=== PATIENT | female | born 1985 | race Caucasian/White ===

== ENCOUNTER 2019-08-09 10:18 | Inpatient (IN) | payer MEDICAID ==
[~2019-08-09] VITALS: Ht 160 cm; Wt 66.7 kg
[2019-08-09] MEDS ORDERED: SODIUM CHLORIDE 0.9% 1,000 ML IV ONE (10:35)
[2019-08-09] MEDS ORDERED: ONDANSETRON HCL 4MG/2ML INJ IV STA (10:35)
[2019-08-09] MEDS ORDERED: MORPHINE SULFATE 4 MG/ML CPJ (NOT FOR IM USE) IV ONE (11:15)
[2019-08-09 11:21] LABS: BASOPHILS % 0.3 % (0.0-2.0); MEAN CORPUSCULAR HEMOGLOBIN 28.5 pg (28.0-32.0); MEAN CORPUSCULAR VOLUME 85.4 fL (81.0-99.0); MEAN PLATELET VOLUME 7.8 fl (7.4-10.4); MONOCYTES % 4.7 % (2.0-8.0); PLATELET 304 x1000/uL (130-400); RED BLOOD CELL COUNT 4.56 mill/uL (4.2-5.4); RED CELL DISTRIBUTION WIDTH 13.2 % (11.6-14.6)
[2019-08-09 11:28] LABS: CHLORIDE 110 mEq/L (98-107)
[2019-08-09 11:35] LABS: HCG SCREEN NEGATIVE
[2019-08-09 11:36] LABS: INR 1.1; PROTHROMBIN TIME 11.4 sec (9.6-11.0)
[2019-08-09 12:42] LABS: CLARITY URINE CLOUDY (CLEAR); COLOR URINE YELLOW (YELLOW); KETONES URINE 3+ (NEGATIVE); LEUKOCYTE ESTERASE URINE 1+ (NEGATIVE); NITRITE URINE NEGATIVE (NEGATIVE); OCCULT BLOOD URINE 3+ (NEGATIVE); PH URINE 5.5 (4.5-8.0); PROTEIN URINE 2+ (NEGATIVE); SPECIFIC GRAVITY URINE 1.039 (1.005-1.030)
[2019-08-09] MEDS ORDERED: VISCOUS LIDOCAINE 2% 15 ML UDC PO STA (13:22)
[2019-08-09] MEDS ORDERED: MAGNESIUM/ALUMINUM HYDROXIDE/SIMETHICONE 30ML UDC PO STA (13:22)
[2019-08-09] MEDS ORDERED: DICYCLOMINE 10 MG/5 ML ORAL SYR PO STA (13:22)
[2019-08-09] MEDS ORDERED: LORAZEPAM 0.5MG TABLET PO PRN (17:15)
[2019-08-09] MEDS ORDERED: IPRATROPIUM/ALBUTEROL 0.5-3(2.5)MG/3ML NEB HHN PRN (17:15)
[2019-08-09] MEDS ORDERED: CLONIDINE 0.1MG TABLET PO PRN (17:15)
[2019-08-09] MEDS ORDERED: KETOROLAC 15MG/ML VIAL IV PRN (17:15)
[2019-08-09] MEDS ORDERED: DOCUSATE SODIUM 100MG CAPSULE PO PRN (17:15)
[2019-08-09] MEDS ORDERED: POTASSIUM CHLORIDE 20MEQ TABLET SR PO SCH (17:30)
[2019-08-09] MEDS: SODIUM CHLORIDE 0.9% 1,000 ML IV SCH (19:10)
[2019-08-09] MEDS: ONDANSETRON HCL 4MG/2ML INJ IV PRN (19:17)
[2019-08-09] MEDS: HYDROMORPHONE HCL/PF 2MG/ML CPJ IV PRN (19:31)
[2019-08-10] VITALS (7 sets, daily range): BP systolic 126–162; BP diastolic 66–77
[2019-08-10] MEDS: SUCRALFATE 1 G/10 ML UDC PO SCH ×3 (00:08→11:38)
[2019-08-10] MEDS: PANTOPRAZOLE SODIUM 40 MG/VIAL IV SCH ×2 (00:10→08:42)
[2019-08-10 00:12] LABS: TOTAL IRON BINDING CAPACITY 428 ug/dL (250-450)
[2019-08-10 00:27] LABS: FERRITIN 32 ng/mL (10-291)
[2019-08-10 00:38] LABS: HEPATITIS B SURFACE ANTIGEN NEGATIVE
[2019-08-10 01:08] LABS: HEPATITIS A AB IGM NEGATIVE (NEGATIVE)
[2019-08-10] MEDS: ONDANSETRON HCL 4MG/2ML INJ IV PRN ×2 (01:34→07:52)
[2019-08-10] MEDS: HYDROMORPHONE HCL/PF 2MG/ML CPJ IV PRN ×2 (01:35→08:43)
[2019-08-10] MEDS: HYDROCODONE/ACETAMINOPHEN 5/325MG TABLET PO PRN ×2 (04:14→21:55)
[2019-08-10] MEDS: SODIUM CHLORIDE 0.9% 1,000 ML IV SCH ×2 (04:14→20:34)
[2019-08-10 06:39] LABS: BASOPHILS % 0.3 % (0.0-2.0); HEMATOCRIT. 35.3 % (36.0-48.0); HEMOGLOBIN. 12.2 g/dL (12.0-16.0); LYMPHOCYTES % 13.5 % (20.0-50.0); MEAN CORPUSCULAR HEMOGLOBIN 29.5 pg (28.0-32.0); MEAN CORPUSCULAR VOLUME 85.4 fL (81.0-99.0); MEAN PLATELET VOLUME 7.7 fl (7.4-10.4); MONOCYTES % 6.4 % (2.0-8.0); NEUTROPHILS % 79.8 % (40.0-76.0); PLATELET 270 x1000/uL (130-400); RED BLOOD CELL COUNT 4.14 mill/uL (4.2-5.4); RED CELL DISTRIBUTION WIDTH 13.3 % (11.6-14.6)
[2019-08-10 07:11] LABS: CHLORIDE 111 mEq/L (98-107)
[2019-08-10 07:33] LABS: *AMPHETAMINES SCREEN URINE NEGATIVE (NEGATIVE)
[2019-08-10 07:34] LABS: *BARBITURATES SCREEN URINE NEGATIVE (NEGATIVE); *BENZODIAZEPINES SCREEN URINE NEGATIVE (NEGATIVE); METHADONE URINE SCREEN NEGATIVE (NEGATIVE); PHENCYCLIDINE URINE SCREEN NEGATIVE (NEGATIVE)
[2019-08-10 07:48] LABS: *COCAINE SCREEN URINE NEGATIVE (NEGATIVE)
[2019-08-10] MEDS: ACETAMINOPHEN 325MG TABLET PO PRN ×2 (07:53→09:27)
[2019-08-10 08:53] LABS: OPIATES URINE SCREEN PRESUMTIVE POSITIVE (NEGATIVE)
[2019-08-10 08:54] LABS: CANNABINOID URINE SCREEN PRESUMTIVE POSITIVE (NEGATIVE)
[2019-08-10] MEDS ORDERED: METOCLOPRAMIDE HCL 10MG/2ML VIAL IV PRN (12:15)
[2019-08-10] MEDS ORDERED: HYDROMORPHONE HCL/PF 2MG/ML CPJ IV PRN (12:45)
[2019-08-10] MEDS ORDERED: ONDANSETRON HCL 4MG/2ML INJ IV PRN (16:15)
[2019-08-10] MEDS ORDERED: ONDANSETRON INJ 8 MG in DEXTROSE 5% WATER 50 ML IV PRN (16:45)
[2019-08-10] MEDS ORDERED: LEVOFLOXACIN 500MG PREMIX 100 ML IV SCH (18:00)
[2019-08-10] MEDS: ALPRAZOLAM 0.25 MG TABLET PO SCH ×2 (18:04→18:05)
[2019-08-10] MEDS: LORAZEPAM 2MG/ML CPJ IV PRN ×2 (18:29→19:03)
[2019-08-10] MEDS: ONDANSETRON INJ 8 MG in DEXTROSE 5% WATER 50 ML IV SCH ×3 (18:29→21:16)
[2019-08-11] VITALS: BP 160/87
[2019-08-11] MEDS: ONDANSETRON INJ 8 MG in DEXTROSE 5% WATER 50 ML IV SCH (01:54)
[2019-08-11] MEDS: HYDROCODONE/ACETAMINOPHEN 5/325MG TABLET PO PRN (02:44)
[2019-08-11 04:00] VITALS: BP 132/73
[2019-08-11] MEDS: ALPRAZOLAM 0.25 MG TABLET PO SCH ×2 (05:24→13:36)
[2019-08-11 08:00] VITALS: BP 118/64
[2019-08-11] MEDS: PANTOPRAZOLE SODIUM 40 MG/VIAL IV SCH (08:11)
[2019-08-11] MEDS: LORAZEPAM 2MG/ML CPJ IV PRN ×3 (09:01→23:57)
[2019-08-11] MEDS: SODIUM CHLORIDE 0.9% 1,000 ML IV SCH ×3 (11:08→23:57)
[2019-08-11] MEDS: LEVOFLOXACIN 250MG PREMIX 50 ML IV SCH (11:09)
[2019-08-11 12:00] VITALS: BP 118/64
[2019-08-11] MEDS ORDERED: POTASSIUM CHLORIDE 20MEQ TABLET SR PO NR (13:30)
[2019-08-11 16:00] VITALS: BP 125/67
[2019-08-11 20:00] VITALS: BP 137/78
[2019-08-12] VITALS: BP 103/57
[2019-08-12 04:00] VITALS: BP 126/76
[2019-08-12 07:26] LABS: BASOPHILS % 0.6 % (0.0-2.0); EOSINOPHILS % 0.1 % (0.0-5.0); HEMATOCRIT. 38.4 % (36.0-48.0); HEMOGLOBIN. 12.9 g/dL (12.0-16.0); LYMPHOCYTES % 40.3 % (20.0-50.0); MEAN CORPUSCULAR HEMOGLOBIN 28.1 pg (28.0-32.0); MEAN CORPUSCULAR VOLUME 83.9 fL (81.0-99.0); MEAN PLATELET VOLUME 7.7 fl (7.4-10.4); MONOCYTES % 6.9 % (2.0-8.0); NEUTROPHILS % 52.1 % (40.0-76.0); PLATELET 288 x1000/uL (130-400); RED BLOOD CELL COUNT 4.57 mill/uL (4.2-5.4); RED CELL DISTRIBUTION WIDTH 13.2 % (11.6-14.6)
[2019-08-12 07:29] LABS: CHLORIDE 106 mEq/L (98-107)
[2019-08-12 08:00] VITALS: BP 151/76
[2019-08-12] MEDS: PANTOPRAZOLE SODIUM 40 MG/VIAL IV SCH (09:27)
[2019-08-12] MEDS: SODIUM CHLORIDE 0.9% 1,000 ML IV SCH ×2 (09:27→15:52)
[2019-08-12] MEDS ORDERED: POTASSIUM CHLORIDE INJ 40 MEQ in DEXT 5% WATER 250 ML IV ONE (09:30)
[2019-08-12] MEDS: LEVOFLOXACIN 250MG PREMIX 50 ML IV SCH (10:12)
[2019-08-12 12:00] VITALS: BP 124/79
[2019-08-12] MEDS: ACETAMINOPHEN 325MG TABLET PO PRN ×2 (12:20→20:44)
[2019-08-12] MEDS: HYDROCODONE/ACETAMINOPHEN 5/325MG TABLET PO PRN ×2 (13:33→20:45)
[2019-08-12 16:00] VITALS: BP 117/71
[2019-08-12 20:00] VITALS: BP 136/68
[2019-08-12] MEDS ORDERED: ACETAMINOPHEN 650MG SUPP PR PRN (21:45)
[2019-08-13] VITALS: BP 115/62
[2019-08-13 04:00] VITALS: BP 120/58
[2019-08-13] MEDS: SODIUM CHLORIDE 0.9% 1,000 ML IV SCH ×3 (05:18→22:00)
[2019-08-13] MEDS: LORAZEPAM 2MG/ML CPJ IV PRN (05:32)
[2019-08-13 08:00] VITALS: BP 104/60
[2019-08-13] MEDS: PANTOPRAZOLE SODIUM 40 MG/VIAL IV SCH (08:34)
[2019-08-13] MEDS: LEVOFLOXACIN 250MG PREMIX 50 ML IV SCH (11:08)
[2019-08-13 12:00] VITALS: BP 104/61
[2019-08-13 13:34] LABS: BASOPHILS % 0.7 % (0.0-2.0); EOSINOPHILS % 0.2 % (0.0-5.0); HEMATOCRIT. 38.7 % (36.0-48.0); HEMOGLOBIN. 13.1 g/dL (12.0-16.0); LYMPHOCYTES % 37.2 % (20.0-50.0); MEAN CORPUSCULAR HEMOGLOBIN 28.3 pg (28.0-32.0); MEAN CORPUSCULAR VOLUME 83.4 fL (81.0-99.0); MEAN PLATELET VOLUME 7.5 fl (7.4-10.4); MONOCYTES % 6.6 % (2.0-8.0); NEUTROPHILS % 55.3 % (40.0-76.0); PLATELET 304 x1000/uL (130-400); RED BLOOD CELL COUNT 4.64 mill/uL (4.2-5.4); RED CELL DISTRIBUTION WIDTH 12.7 % (11.6-14.6)
[2019-08-13 13:47] LABS: CHLORIDE 106 mEq/L (98-107)
[2019-08-13] MEDS ORDERED: MIDAZOLAM HCL 2 MG/2 ML VIAL IV PRN (14:35)
[2019-08-13] MEDS ORDERED: FENTANYL CITRATE/PF 50MCG/ML 2ML VIAL IV PRN (14:37)
[2019-08-13] MEDS ORDERED: FENTANYL CITRATE/PF 50MCG/ML 2ML VIAL ONE (14:37)
[2019-08-13] MEDS ORDERED: MIDAZOLAM HCL 5 MG/5 ML VIAL ONE (14:37)
[2019-08-13] MEDS ORDERED: DIAZEPAM 5 MG/ML 2ML CPJ IV PRN (14:44)
[2019-08-13] MEDS ORDERED: DIAZEPAM 5 MG/ML 2ML CPJ ONE (14:47)
[2019-08-13 16:05] VITALS: BP 118/72
[2019-08-13] MEDS: SUCRALFATE 1 G/10 ML UDC PO SCH ×2 (17:50→21:07)
[2019-08-13] MEDS: METOCLOPRAMIDE HCL 10MG/2ML VIAL IV SCH ×2 (17:51→21:07)
[2019-08-13 20:00] VITALS: BP 125/75
[2019-08-14] VITALS (7 sets, daily range): BP systolic 117–128; BP diastolic 70–80
[2019-08-14] MEDS: METOCLOPRAMIDE HCL 10MG/2ML VIAL IV SCH ×3 (06:36→16:25)
[2019-08-14] MEDS: SUCRALFATE 1 G/10 ML UDC PO SCH ×3 (06:36→16:25)
[2019-08-14] MEDS: PANTOPRAZOLE SODIUM 40 MG/VIAL IV SCH (07:52)
[2019-08-14] MEDS: SODIUM CHLORIDE 0.9% 1,000 ML IV SCH (07:52)
[2019-08-14] MEDS: LEVOFLOXACIN 250MG PREMIX 50 ML IV SCH (11:57)
[2019-08-14] MEDS ORDERED: SUCR1ORA15 PO (13:15)
[2019-08-14] MEDS ORDERED: ONDA4TAB11 PO (13:15)
[2019-08-14] MEDS ORDERED: PANT40TA4 MT (13:15)
[2019-08-14] MEDS ORDERED: METO-293 PO (13:15)
[2019-08-14] MEDS ORDERED: HYDR-3281 MT (13:15)
[2019-08-14] MEDS ORDERED: ATOR20TA65 MT (13:15)
[2019-08-14] MEDS ORDERED: HYDR-4001 MT (14:37)
== END 2019-08-14 20:43 | disposition home or self-care (01) | DRG 242 ==
LOC: ER 10:18 → MICUSO 11:16 → EDBEDREQSVC 21:35 → EDBEDREQTM 21:35 → 5WST 23:01
PROVIDERS: ADMIT Internal Medicine; ATTEND Internal Medicine
PROC: 0DB68ZX Excision of Stomach, Via Natural or Artificial Opening Endoscopic, Diagnostic (ICD-10-PCS; principal; 2019-08-13)
DX: K22.11 Ulcer of esophagus with bleeding (principal); K29.71 Gastritis, unspecified, with bleeding; D72.810 Lymphocytopenia; F41.9 Anxiety disorder, unspecified; E78.1 Pure hyperglyceridemia; E87.6 Hypokalemia; F12.90 Cannabis use, unspecified, uncomplicated; E78.5 Hyperlipidemia, unspecified; N39.0 Urinary tract infection, site not specified; R31.29 Other microscopic hematuria; K76.9 Liver disease, unspecified; K21.0 Gastro-esophageal reflux disease with esophagitis; R80.9 Proteinuria, unspecified; I45.81 Long QT syndrome; Z87.19 Personal history of other diseases of the digestive system; R65.10 Systemic inflammatory response syndrome (SIRS) of non-infectious origin without acute organ dysfunction
CPT/HCPCS: 36415; 71045; 76700; 80048; 80053; 80061; 80305; 81003; 82728; 83036; 83540; 83550; 83605; 83735; 84132; 84145; 84484; 84703; 85025; 86705; 86709; 86803; 87340; 88305; 88312; 88313; 93005; 99285; C9113; J1170; J1956; J2060; J2250; J2270; J2405; J2765; J3010; J3480; J7030; J7060

== ENCOUNTER 2019-08-21 13:07 | Inpatient (IN) | payer MEDICAID ==
[~2019-08-21] VITALS: Ht 160 cm; Wt 64.9 kg
[~2019-08-21 13:07] MED LIST: ATOR20TA65 MT; HYDR-4001 MT; METO-293 PO; ONDA4TAB11 PO; PANT40TA4 MT; SUCR1ORA15 PO
[2019-08-21] MEDS ORDERED: ONDANSETRON HCL 4MG/2ML INJ IV STA ×2 (14:35→17:41)
[2019-08-21] MEDS ORDERED: MAGNESIUM/ALUMINUM HYDROXIDE/SIMETHICONE 30ML UDC PO STA (14:35)
[2019-08-21] MEDS ORDERED: DICYCLOMINE 10 MG/5 ML ORAL SYR PO STA (14:35)
[2019-08-21] MEDS ORDERED: VISCOUS LIDOCAINE 2% 15 ML UDC PO STA (14:35)
[2019-08-21] MEDS ORDERED: SODIUM CHLORIDE 0.9% 1,000 ML IV ONE (14:35)
[2019-08-21 15:21] LABS: BASOPHILS % 0.9 % (0.0-2.0); EOSINOPHILS % 0.1 % (0.0-5.0); HEMATOCRIT. 41.3 % (36.0-48.0); HEMOGLOBIN. 13.8 g/dL (12.0-16.0); MEAN CORPUSCULAR HEMOGLOBIN 28.1 pg (28.0-32.0); MEAN CORPUSCULAR VOLUME 84.4 fL (81.0-99.0); MEAN PLATELET VOLUME 7.7 fl (7.4-10.4); MONOCYTES % 6.9 % (2.0-8.0); NEUTROPHILS % 63.1 % (40.0-76.0); PLATELET 317 x1000/uL (130-400); RED BLOOD CELL COUNT 4.89 mill/uL (4.2-5.4); RED CELL DISTRIBUTION WIDTH 13.4 % (11.6-14.6)
[2019-08-21 15:24] LABS: CHLORIDE 104 mEq/L (98-107)
[2019-08-21] MEDS ORDERED: POTASSIUM CHLORIDE 20MEQ TABLET SR PO ONE (16:15)
[2019-08-21 16:39] LABS: CLARITY URINE CLOUDY (CLEAR); COLOR URINE DARK YELLOW (YELLOW); KETONES URINE 4+ (NEGATIVE); LEUKOCYTE ESTERASE URINE 1+ (NEGATIVE); NITRITE URINE NEGATIVE (NEGATIVE); OCCULT BLOOD URINE 1+ (NEGATIVE); PH URINE 5.5 (4.5-8.0); PROTEIN URINE TRACE (NEGATIVE); SPECIFIC GRAVITY URINE 1.027 (1.005-1.030)
[2019-08-21] MEDS ORDERED: MORPHINE SULFATE 4 MG/ML CPJ (NOT FOR IM USE) IV STA (17:41)
[2019-08-21] MEDS ORDERED: CEFTRIAXONE 1 G PREMIX 50 ML IV ONE (20:30)
[2019-08-22 00:05] VITALS: BP 111/78
[2019-08-22] MEDS ORDERED: ONDANSETRON HCL 4MG/2ML INJ IV PRN (00:15)
[2019-08-22] MEDS ORDERED: IPRATROPIUM/ALBUTEROL 0.5-3(2.5)MG/3ML NEB NEB PRN (00:15)
[2019-08-22] MEDS ORDERED: CLONIDINE 0.1MG TABLET PO PRN (00:15)
[2019-08-22] MEDS: SODIUM CHLORIDE 0.9% 1,000 ML IV SCH ×2 (01:26→13:22)
[2019-08-22] MEDS: ACETAMINOPHEN 325MG TABLET PO PRN (01:41)
[2019-08-22 04:00] VITALS: BP 107/59
[2019-08-22 07:07] LABS: CHLORIDE 109 mEq/L (98-107)
[2019-08-22 07:16] LABS: ETHANOL BLOOD < 10 mg/dL
[2019-08-22 07:20] LABS: CREATINE KINASE 57 IU/L (26-192)
[2019-08-22 07:23] LABS: CREATINE KINASE MB FRACTION < 1.0 ng/mL (0.5-3.6)
[2019-08-22 08:00] VITALS: BP 108/42
[2019-08-22] MEDS: HYDROCODONE/ACETAMINOPHEN 5/325MG TABLET PO PRN (09:35)
[2019-08-22 09:39] LABS: *AMPHETAMINES SCREEN URINE NEGATIVE (NEGATIVE); *BARBITURATES SCREEN URINE NEGATIVE (NEGATIVE)
[2019-08-22 09:40] LABS: *BENZODIAZEPINES SCREEN URINE NEGATIVE (NEGATIVE); *COCAINE SCREEN URINE NEGATIVE (NEGATIVE); METHADONE URINE SCREEN NEGATIVE (NEGATIVE); PHENCYCLIDINE URINE SCREEN NEGATIVE (NEGATIVE)
[2019-08-22 10:22] LABS: OPIATES URINE SCREEN PRESUMTIVE POSITIVE (NEGATIVE)
[2019-08-22 10:23] LABS: CANNABINOID URINE SCREEN PRESUMTIVE POSITIVE (NEGATIVE)
[2019-08-22 12:00] VITALS: BP 96/55
[2019-08-22] MEDS: BISACODYL 5MG TABLET PO SCH (13:22)
[2019-08-22 16:00] VITALS: BP 105/65
[2019-08-22 17:18] LABS: CREATINE KINASE 111 IU/L (26-192)
[2019-08-22 17:19] LABS: CREATINE KINASE MB FRACTION < 1.0 ng/mL (0.5-3.6)
[2019-08-22] MEDS: SUCRALFATE 1 G/10 ML UDC PO SCH ×2 (17:35→20:32)
[2019-08-22] MEDS: PANTOPRAZOLE SODIUM 40 MG/VIAL IV SCH (17:36)
[2019-08-22] MEDS: METOCLOPRAMIDE HCL 10MG/2ML VIAL IV SCH (17:36)
[2019-08-22 20:00] VITALS: BP 100/59
[2019-08-22] MEDS ORDERED: CEFTRIAXONE 1 G PREMIX 50 ML IV SCH ×2 (21:00)
[2019-08-23] VITALS: BP 117/55
[2019-08-23] MEDS: METOCLOPRAMIDE HCL 10MG/2ML VIAL IV SCH ×3 (00:10→12:34)
[2019-08-23] MEDS: SODIUM CHLORIDE 0.9% 1,000 ML IV SCH ×2 (01:33→13:42)
[2019-08-23 04:00] VITALS: BP 107/53
[2019-08-23 07:21] LABS: BASOPHILS % 0.7 % (0.0-2.0); EOSINOPHILS % 0.7 % (0.0-5.0); HEMATOCRIT. 36.5 % (36.0-48.0); HEMOGLOBIN. 12.2 g/dL (12.0-16.0); LYMPHOCYTES % 46.3 % (20.0-50.0); MEAN CORPUSCULAR HEMOGLOBIN 28.2 pg (28.0-32.0); MEAN CORPUSCULAR VOLUME 84.2 fL (81.0-99.0); MONOCYTES % 7.5 % (2.0-8.0); NEUTROPHILS % 44.8 % (40.0-76.0); PLATELET 255 x1000/uL (130-400); RED BLOOD CELL COUNT 4.34 mill/uL (4.2-5.4); RED CELL DISTRIBUTION WIDTH 13.3 % (11.6-14.6)
[2019-08-23] MEDS: SUCRALFATE 1 G/10 ML UDC PO SCH ×2 (07:22→12:34)
[2019-08-23 08:00] VITALS: BP 110/66
[2019-08-23] MEDS: PANTOPRAZOLE SODIUM 40 MG/VIAL IV SCH (09:19)
[2019-08-23] MEDS: BISACODYL 5MG TABLET PO SCH (09:19)
[2019-08-23] MEDS: ACETAMINOPHEN 325MG TABLET PO PRN (09:26)
[2019-08-23 12:00] VITALS: BP 104/50
[2019-08-23] MEDS: HYDROCODONE/ACETAMINOPHEN 5/325MG TABLET PO PRN (13:41)
[2019-08-23] MEDS ORDERED: METO-293 PO (14:10)
[2019-08-23 15:36] VITALS: BP 104/50
[2019-08-23 16:00] VITALS: BP 110/60
== END 2019-08-23 16:16 | disposition home or self-care (01) | DRG 812 ==
LOC: ER 13:17 → EDBEDREQTM 20:32 → EDBEDREQ 20:32 → ENRESERV 23:00 → 6EST 08-22 00:05
PROVIDERS: ADMIT Internal Medicine; ATTEND Emergency Medicine
DX: T40.7X1A Poisoning by cannabis (derivatives), accidental (unintentional), initial encounter (principal); N39.0 Urinary tract infection, site not specified; K52.9 Noninfective gastroenteritis and colitis, unspecified; E87.6 Hypokalemia; R11.15 Cyclical vomiting syndrome unrelated to migraine; K59.00 Constipation, unspecified; F12.90 Cannabis use, unspecified, uncomplicated; R74.8 Abnormal levels of other serum enzymes; K76.0 Fatty (change of) liver, not elsewhere classified; Z87.19 Personal history of other diseases of the digestive system
CPT/HCPCS: 36415; 74176; 80048; 80053; 80061; 80305; 80320; 81003; 82550; 82553; 83735; 84443; 84484; 85025; 96374; 99285; C9113; J0696; J2270; J2405; J2765; J7030; G0480

== ENCOUNTER 2021-03-26 11:04 | Emergency (ER) | payer MEDICAID ==
[~2021-03-26] VITALS: Ht 160 cm; Wt 64.0 kg
[~2021-03-26 11:04] MED LIST changes: -PANT40TA4 MT; +PANT40TA51 MT
[2021-03-26] MEDS ORDERED: PANTOPRAZOLE SODIUM 40 MG/VIAL IV STA (11:22)
[2021-03-26] MEDS ORDERED: METOCLOPRAMIDE HCL 10MG/2ML VIAL IV STA (11:25)
[2021-03-26] MEDS ORDERED: MAGNESIUM/ALUMINUM HYDROXIDE/SIMETHICONE 30ML UDC PO STA (11:31)
[2021-03-26 12:24] LABS: BASOPHILS % 0.3 % (0.0-2.0); HEMATOCRIT. 40.9 % (36.0-48.0); HEMOGLOBIN. 13.5 g/dL (12.0-16.0); LYMPHOCYTES % 12.5 % (20.0-50.0); MEAN CORPUSCULAR HEMOGLOBIN 27.9 pg (28.0-32.0); MEAN CORPUSCULAR VOLUME 84.1 fL (81.0-99.0); MEAN PLATELET VOLUME 7.9 fl (7.4-10.4); MONOCYTES % 3.3 % (2.0-8.0); NEUTROPHILS % 83.9 % (40.0-76.0); PLATELET 324 x1000/uL (130-400); RED BLOOD CELL COUNT 4.86 mill/uL (4.2-5.4); RED CELL DISTRIBUTION WIDTH 12.7 % (11.6-14.6)
[2021-03-26 12:29] LABS: CHLORIDE 109 mEq/L (98-107)
[2021-03-26 12:33] LABS: ETHANOL BLOOD < 10 mg/dL
[2021-03-26 12:38] LABS: *AMPHETAMINES SCREEN URINE NEGATIVE (NEGATIVE); *BARBITURATES SCREEN URINE NEGATIVE (NEGATIVE)
[2021-03-26 12:39] LABS: *BENZODIAZEPINES SCREEN URINE NEGATIVE (NEGATIVE); *COCAINE SCREEN URINE NEGATIVE (NEGATIVE); METHADONE URINE SCREEN NEGATIVE (NEGATIVE); OPIATES URINE SCREEN NEGATIVE (NEGATIVE); PHENCYCLIDINE URINE SCREEN NEGATIVE (NEGATIVE)
[2021-03-26 12:42] LABS: HCG SCREEN NEGATIVE
[2021-03-26 12:43] LABS: CANNABINOID URINE SCREEN PRESUMTIVE POSITIVE (NEGATIVE)
[2021-03-26] MEDS ORDERED: MORPHINE SULFATE 4 MG/ML CPJ (NOT FOR IM USE) IV ONE (12:45)
[2021-03-26] MEDS ORDERED: SODIUM CHLORIDE 0.9% 1,000 ML IV ONE (13:00)
[2021-03-26] MEDS ORDERED: HALOPERIDOL LACTATE 5MG/ML VIAL IM ONE (13:45)
[2021-03-26] MEDS ORDERED: DIPHENHYDRAMINE 50MG/ML VIAL IV ONE (13:45)
[2021-03-26 15:30] VITALS: BP 127/67
[2021-03-26 15:56] LABS: CLARITY URINE CLEAR (CLEAR); COLOR URINE YELLOW (YELLOW); KETONES URINE 2+ (NEGATIVE); LEUKOCYTE ESTERASE URINE 1+ (NEGATIVE); NITRITE URINE NEGATIVE (NEGATIVE); OCCULT BLOOD URINE 3+ (NEGATIVE); PH URINE 8.5 (4.5-8.0); PROTEIN URINE TRACE (NEGATIVE); SPECIFIC GRAVITY URINE 1.019 (1.005-1.030); UROBILINOGEN URINE 0.2 E.U./dL (0.2-1.0)
== END 2021-03-26 18:23 | disposition home or self-care (01) ==
LOC: ER 11:04 → CANBEDREQ 19:07
DX: F12.188 Cannabis abuse with other cannabis-induced disorder (principal); K76.9 Liver disease, unspecified; Z20.822 Contact with and (suspected) exposure to COVID-19
CPT/HCPCS: 36415; 71045; 74176; 80053; 80305; 80320; 81003; 83605; 83690; 83880; 84484; 84703; 85025; 85610; 86850; 86900; 86901; 87426; 96361; 96372; 96374; 96375; 99285; C9113; J1200; J1630; J2270; J2765; J7030; Z7610; G0480

== ENCOUNTER 2021-07-28 20:11 | Emergency (ER) | payer MEDICAID ==
[~2021-07-28] VITALS: Ht 160 cm; Wt 61.3 kg
[~2021-07-28 20:11] MED LIST changes: -HYDR-4001 MT; -METO-293 PO
[2021-07-28] MEDS ORDERED: SODIUM CHLORIDE 0.9% 1,000 ML IV ONE (23:30)
[2021-07-28] MEDS ORDERED: METOCLOPRAMIDE HCL 10MG/2ML VIAL IV STA (23:30)
[2021-07-28] MEDS ORDERED: HALOPERIDOL LACTATE 5MG/ML VIAL IM ONE (23:30)
[2021-07-29 00:08] LABS: BASOPHILS % 0.5 % (0.0-2.0); EOSINOPHILS % 0.2 % (0.0-5.0); HEMATOCRIT. 38.5 % (36.0-48.0); HEMOGLOBIN. 12.6 g/dL (12.0-16.0); LYMPHOCYTES % 34.3 % (20.0-50.0); MEAN CORPUSCULAR HEMOGLOBIN 27.5 pg (28.0-32.0); MEAN CORPUSCULAR VOLUME 84.2 fL (81.0-99.0); MEAN PLATELET VOLUME 7.7 fl (7.4-10.4); PLATELET 298 x1000/uL (130-400); RED BLOOD CELL COUNT 4.57 mill/uL (4.2-5.4); RED CELL DISTRIBUTION WIDTH 13.6 % (11.6-14.6)
[2021-07-29 00:23] LABS: CHLORIDE 106 mEq/L (98-107)
[2021-07-29] MEDS ORDERED: METO-293 MT (03:22)
[2021-07-29 04:02] VITALS: BP 106/66
== END 2021-07-29 04:10 | disposition home or self-care (01) ==
LOC: ER 20:11
DX: R11.15 Cyclical vomiting syndrome unrelated to migraine (principal); R10.13 Epigastric pain
CPT/HCPCS: 36415; 80053; 83690; 85025; 96361; 96372; 96374; 99285; J1630; J2765; J7030

== ENCOUNTER 2022-02-11 21:22 | Emergency (ER) | payer MEDICAID, OTHER ==
[~2022-02-11] VITALS: Ht 167.6 cm; Wt 59.0 kg
[~2022-02-11 21:22] MED LIST changes: +METO-293 MT
[2022-02-12] MEDS ORDERED: MORPHINE SULFATE 4 MG/ML CPJ (NOT FOR IM USE) IV STA (00:37)
[2022-02-12] MEDS ORDERED: ONDANSETRON HCL 4MG/2ML INJ IV STA (00:37)
[2022-02-12] MEDS ORDERED: SODIUM CHLORIDE 0.9% 1,000 ML IV ONE (00:45)
[2022-02-12] MEDS ORDERED: HALOPERIDOL LACTATE 5MG/ML VIAL IM ONE (00:45)
[2022-02-12 01:39] LABS: BASOPHILS % 0.3 % (0.0-2.0); HEMATOCRIT. 37.9 % (36.0-48.0); HEMOGLOBIN. 12.8 g/dL (12.0-16.0); LYMPHOCYTES % 31.5 % (20.0-50.0); MEAN CORPUSCULAR HEMOGLOBIN 28.1 pg (28.0-32.0); MEAN CORPUSCULAR VOLUME 83.2 fL (81.0-99.0); MEAN PLATELET VOLUME 6.9 fl (7.4-10.4); MONOCYTES % 3.9 % (2.0-8.0); NEUTROPHILS % 64.3 % (40.0-76.0); PLATELET 380 x1000/uL (130-400); RED BLOOD CELL COUNT 4.56 mill/uL (4.2-5.4); RED CELL DISTRIBUTION WIDTH 13.3 % (11.6-14.6)
[2022-02-12 01:44] LABS: CHLORIDE 108 mEq/L (98-107)
[2022-02-12 01:48] LABS: HCG SCREEN NEGATIVE
[2022-02-12 01:54] LABS: ETHANOL BLOOD < 10 mg/dL
[2022-02-12 02:19] LABS: CLARITY URINE CLEAR (CLEAR); COLOR URINE DARK YELLOW (YELLOW); KETONES URINE 4+ (NEGATIVE); LEUKOCYTE ESTERASE URINE NEGATIVE (NEGATIVE); NITRITE URINE NEGATIVE (NEGATIVE); OCCULT BLOOD URINE NEGATIVE (NEGATIVE); PH URINE >=9.0 (4.5-8.0); PROTEIN URINE 1+ (NEGATIVE)
[2022-02-12] MEDS ORDERED: METO-293 MT (05:18)
[2022-02-12 05:42] LABS: *AMPHETAMINES SCREEN URINE NEGATIVE (NEGATIVE); *BARBITURATES SCREEN URINE NEGATIVE (NEGATIVE); *BENZODIAZEPINES SCREEN URINE NEGATIVE (NEGATIVE); *COCAINE SCREEN URINE NEGATIVE (NEGATIVE); METHADONE URINE SCREEN NEGATIVE (NEGATIVE); PHENCYCLIDINE URINE SCREEN NEGATIVE (NEGATIVE)
[2022-02-12 05:51] LABS: CANNABINOID URINE SCREEN PRESUMTIVE POSITIVE (NEGATIVE); OPIATES URINE SCREEN PRESUMTIVE POSITIVE (NEGATIVE)
[2022-02-12 06:05] VITALS: BP 99/66
== END 2022-02-12 06:09 | disposition home or self-care (01) ==
LOC: ER 21:22
DX: R11.2 Nausea with vomiting, unspecified (principal); F12.10 Cannabis abuse, uncomplicated; Z98.890 Other specified postprocedural states
CPT/HCPCS: 36415; 74176; 80053; 80305; 80320; 81003; 83690; 84703; 85025; 96361; 96372; 96374; 96375; 99284; J1630; J2270; J2405; J7030; G0480

== ENCOUNTER 2022-02-12 13:43 | Inpatient (IN) | payer OTHER ==
[~2022-02-12] VITALS: Ht 160 cm; Wt 62.6 kg
[2022-02-12] MEDS ORDERED: MAGNESIUM/ALUMINUM HYDROXIDE/SIMETHICONE 30ML UDC PO STA (14:05)
[2022-02-12] MEDS ORDERED: CAPSAICIN 0.075% CREAM 60GM TOP PRN (14:15)
[2022-02-12 14:34] LABS: BASOPHILS % 0.3 % (0.0-2.0); HEMATOCRIT. 35.3 % (36.0-48.0); LYMPHOCYTES % 35.2 % (20.0-50.0); MEAN CORPUSCULAR HEMOGLOBIN 28.1 pg (28.0-32.0); MEAN CORPUSCULAR VOLUME 82.8 fL (81.0-99.0); MEAN PLATELET VOLUME 6.8 fl (7.4-10.4); NEUTROPHILS % 58.5 % (40.0-76.0); PLATELET 326 x1000/uL (130-400); RED BLOOD CELL COUNT 4.26 mill/uL (4.2-5.4); RED CELL DISTRIBUTION WIDTH 13.3 % (11.6-14.6)
[2022-02-12 14:40] LABS: CHLORIDE 108 mEq/L (98-107)
[2022-02-12] MEDS ORDERED: ONDANSETRON HCL 4MG/2ML INJ IV STA (16:34)
[2022-02-12] MEDS ORDERED: KETOROLAC 30MG/ML VIAL IV STA (16:34)
[2022-02-12] MEDS ORDERED: SODIUM CHLORIDE 0.9% 1,000 ML IV ONE ×2 (16:45→19:15)
[2022-02-12] MEDS ORDERED: MORPHINE SULFATE 4 MG/ML CPJ (NOT FOR IM USE) IV STA (19:04)
[2022-02-12 20:00] VITALS: BP 117/63
[2022-02-12] MEDS ORDERED: MORPHINE SULFATE 2 MG/ML CPJ (NOT FOR IM USE) IV PRN ×2 (22:15→22:30)
[2022-02-12 22:19] VITALS: BP 117/63
[2022-02-13] VITALS: BP 120/75
[2022-02-13] MEDS: DEXT 5%/0.45% NACL KCL 20MEQ/L 1,000 ML IV SCH ×4 (03:20→23:18)
[2022-02-13 04:00] VITALS: BP 116/66
[2022-02-13 07:04] LABS: HEMOGLOBIN 11.2 g/dL (12.0-16.0); MEAN CORPUSCULAR HEMOGLOBIN 28.5 pg (28.0-32.0); MEAN CORPUSCULAR VOLUME 83.7 fL (81.0-99.0); PLATELET 292 x1000/uL (130-400); RED BLOOD CELL COUNT 3.94 mill/uL (4.2-5.4); RED CELL DISTRIBUTION WIDTH 13.3 % (11.6-14.6)
[2022-02-13 07:22] LABS: CHLORIDE 110 mEq/L (98-107)
[2022-02-13 07:32] LABS: AMYLASE 100 IU/L (25-115)
[2022-02-13 08:00] VITALS: BP 114/66
[2022-02-13] MEDS ORDERED: POTASSIUM CHLORIDE 20MEQ TABLET SR PO NR (08:00)
[2022-02-13] MEDS: HYDROCODONE/ACETAMINOPHEN 5/325MG TABLET PO PRN ×3 (08:37→22:53)
[2022-02-13] MEDS: PANTOPRAZOLE SODIUM 40 MG/VIAL IV SCH (08:37)
[2022-02-13 12:00] VITALS: BP 105/61
[2022-02-13] MEDS ORDERED: NALOXONE HCL 0.4MG/ML VIAL IV PRN (15:15)
[2022-02-13 16:00] VITALS: BP 114/77
[2022-02-13] MEDS: KETOROLAC 30MG/ML VIAL IV PRN (16:23)
[2022-02-13 20:00] VITALS: BP 109/62
[2022-02-14] VITALS: BP 114/64
[2022-02-14] MEDS: KETOROLAC 30MG/ML VIAL IV PRN ×2 (01:34→06:31)
[2022-02-14 04:00] VITALS: BP 107/57
[2022-02-14] MEDS: DEXT 5%/0.45% NACL KCL 20MEQ/L 1,000 ML IV SCH ×2 (06:31→18:41)
[2022-02-14 08:00] VITALS: BP 100/70
[2022-02-14] MEDS: PANTOPRAZOLE SODIUM 40 MG/VIAL IV SCH (11:08)
[2022-02-14] MEDS: HYDROCODONE/ACETAMINOPHEN 5/325MG TABLET PO PRN ×2 (11:10→17:11)
[2022-02-14 12:00] VITALS: BP 116/65
[2022-02-14 16:00] VITALS: BP 127/64
[2022-02-14 20:00] VITALS: BP 124/71
[2022-02-14 20:52] LABS: BASOPHILS % 0.4 % (0.0-2.0); EOSINOPHILS % 0.3 % (0.0-5.0); HEMATOCRIT. 37.2 % (36.0-48.0); HEMOGLOBIN. 12.2 g/dL (12.0-16.0); LYMPHOCYTES % 48.8 % (20.0-50.0); MEAN CORPUSCULAR HEMOGLOBIN 27.8 pg (28.0-32.0); MEAN CORPUSCULAR VOLUME 85.2 fL (81.0-99.0); MEAN PLATELET VOLUME 7.1 fl (7.4-10.4); MONOCYTES % 6.4 % (2.0-8.0); NEUTROPHILS % 44.1 % (40.0-76.0); PLATELET 355 x1000/uL (130-400); RED BLOOD CELL COUNT 4.37 mill/uL (4.2-5.4); RED CELL DISTRIBUTION WIDTH 13.4 % (11.6-14.6)
[2022-02-14 21:10] LABS: CHLORIDE 111 mEq/L (98-107)
[2022-02-15] VITALS: BP 125/85
[2022-02-15] MEDS: HYDROCODONE/ACETAMINOPHEN 5/325MG TABLET PO PRN ×2 (00:15→15:29)
[2022-02-15] MEDS: DEXT 5%/0.45% NACL KCL 20MEQ/L 1,000 ML IV SCH ×3 (02:33→18:30)
[2022-02-15 04:00] VITALS: BP 110/69
[2022-02-15 08:00] VITALS: BP 111/62
[2022-02-15] MEDS: PANTOPRAZOLE SODIUM 40 MG/VIAL IV SCH (08:53)
[2022-02-15] MEDS: KETOROLAC 30MG/ML VIAL IV PRN ×2 (09:18→22:05)
[2022-02-15 11:58] VITALS: BP 114/71
[2022-02-15 16:00] VITALS: BP 124/90
[2022-02-15 20:00] VITALS: BP 134/62
[2022-02-16] VITALS: BP 118/62
[2022-02-16] MEDS: DEXT 5%/0.45% NACL KCL 20MEQ/L 1,000 ML IV SCH ×3 (02:30→21:14)
[2022-02-16 04:00] VITALS: BP 112/76
[2022-02-16 07:09] LABS: INR 1.1; PARTIAL THROMBOPLASTIN TIME 30.9 sec (23.4-31.0); PROTHROMBIN TIME 12.1 sec (9.6-11.0)
[2022-02-16 08:00] VITALS: BP 112/71
[2022-02-16] MEDS: PANTOPRAZOLE SODIUM 40 MG/VIAL IV SCH (08:50)
[2022-02-16 11:56] VITALS: BP 122/76
[2022-02-16] MEDS ORDERED: FENTANYL CITRATE/PF 50MCG/ML 2ML VIAL ONE (12:19)
[2022-02-16] MEDS ORDERED: PROPOFOL 200MG/20ML VIAL IV ONE (12:19)
[2022-02-16] MEDS ORDERED: ROCURONIUM BROMIDE 10MG/ML VIAL 5ML IV ONE (12:19)
[2022-02-16] MEDS ORDERED: MIDAZOLAM HCL 2 MG/2 ML VIAL ONE (12:19)
[2022-02-16] MEDS ORDERED: SKIN ADHESIVE 0.7 GM EA TOP ONE ×2 (13:17→14:19)
[2022-02-16] MEDS ORDERED: BUPIVACAINE HCL/PF 0.5% (5MG/ML) 10ML ONE (13:17)
[2022-02-16] MEDS ORDERED: POLYMYXIN B SULFATE 500000 UNITS/VIAL ONE (13:17)
[2022-02-16] MEDS ORDERED: LIDOCAINE HCL 1% 10 MG/ML 10ML VIAL ONE ×2 (13:17)
[2022-02-16] MEDS ORDERED: HYDROMORPHONE HCL/PF 2MG/ML CPJ ONE (13:47)
[2022-02-16] MEDS ORDERED: GLYCOPYRROLATE 0.2 MG/ML 2ML VIAL ONE (13:59)
[2022-02-16] MEDS ORDERED: NEOSTIGMINE METHYLSULFATE 1MG/ML 10 ML VIAL ONE (13:59)
[2022-02-16] MEDS ORDERED: KETOROLAC 30MG/ML VIAL ONE (14:52)
[2022-02-16] MEDS ORDERED: DEXAMETHASONE 4MG/ML 1ML VIAL ONE (14:52)
[2022-02-16] MEDS ORDERED: ONDANSETRON HCL 4MG/2ML INJ ONE (14:52)
[2022-02-16] MEDS ORDERED: HYDROMORPHONE HCL/PF 2MG/ML CPJ IV PRN (15:00)
[2022-02-16] MEDS ORDERED: ONDANSETRON HCL 4MG/2ML INJ IV PRN (15:00)
[2022-02-16] MEDS ORDERED: FENTANYL CITRATE/PF 50MCG/ML 2ML VIAL IV PRN (15:00)
[2022-02-16] MEDS ORDERED: MEPERIDINE HCL/PF 25MG/ML CPJ IV PRN (15:00)
[2022-02-16] MEDS: ONDANSETRON HCL 4MG/2ML INJ IV PRN ×2 (15:57→20:09)
[2022-02-16] MEDS ORDERED: MORPHINE SULFATE 2 MG/ML CPJ (NOT FOR IM USE) IV PRN (18:45)
[2022-02-16] MEDS: MORPHINE SULFATE 4 MG/ML CPJ (NOT FOR IM USE) IV PRN (19:54)
[2022-02-16 20:00] VITALS: BP 124/77
[2022-02-17] VITALS: BP 136/81
[2022-02-17] MEDS: MORPHINE SULFATE 4 MG/ML CPJ (NOT FOR IM USE) IV PRN ×5 (03:14→22:41)
[2022-02-17] MEDS: ONDANSETRON HCL 4MG/2ML INJ IV PRN ×2 (03:38→08:01)
[2022-02-17 08:00] VITALS: BP 134/80
[2022-02-17] MEDS: PANTOPRAZOLE SODIUM 40 MG/VIAL IV SCH (08:31)
[2022-02-17 12:00] VITALS: BP 162/91
[2022-02-17] MEDS: METOCLOPRAMIDE HCL 10MG/2ML VIAL IV SCH ×3 (12:11→22:40)
[2022-02-17] MEDS: DEXT 5%/0.45% NACL KCL 20MEQ/L 1,000 ML IV SCH (12:12)
[2022-02-17 15:50] VITALS: BP 119/65
[2022-02-17 16:08] LABS: HEMATOCRIT. 36.4 % (36.0-48.0); MEAN CORPUSCULAR HEMOGLOBIN 27.8 pg (28.0-32.0); MEAN CORPUSCULAR VOLUME 84.2 fL (81.0-99.0); MEAN PLATELET VOLUME 7.4 fl (7.4-10.4); PLATELET 345 x1000/uL (130-400); RED BLOOD CELL COUNT 4.33 mill/uL (4.2-5.4)
[2022-02-17 16:13] LABS: CHLORIDE 104 mEq/L (98-107)
[2022-02-17 17:49] LABS: PLATELET ESTIMATE NORMAL
[2022-02-17 20:31] VITALS: BP 130/64
[2022-02-18] MEDS: ONDANSETRON HCL 4MG/2ML INJ IV PRN ×3 (04:09→21:21)
[2022-02-18] MEDS: DEXT 5%/0.45% NACL KCL 20MEQ/L 1,000 ML IV SCH ×3 (04:15→17:25)
[2022-02-18] MEDS: MORPHINE SULFATE 4 MG/ML CPJ (NOT FOR IM USE) IV PRN ×5 (04:15→21:21)
[2022-02-18 06:25] LABS: CHLORIDE 100 mEq/L (98-107)
[2022-02-18 06:31] LABS: AMYLASE 93 IU/L (25-115)
[2022-02-18 06:35] LABS: BASOPHILS % 0.2 % (0.0-2.0); HEMATOCRIT. 36.7 % (36.0-48.0); HEMOGLOBIN. 12.7 g/dL (12.0-16.0); LYMPHOCYTES % 16.3 % (20.0-50.0); MEAN CORPUSCULAR HEMOGLOBIN 28.7 pg (28.0-32.0); MEAN PLATELET VOLUME 7.7 fl (7.4-10.4); MONOCYTES % 6.6 % (2.0-8.0); NEUTROPHILS % 76.9 % (40.0-76.0); PLATELET 363 x1000/uL (130-400); RED BLOOD CELL COUNT 4.42 mill/uL (4.2-5.4); RED CELL DISTRIBUTION WIDTH 13.1 % (11.6-14.6)
[2022-02-18 08:00] VITALS: BP 156/81
[2022-02-18] MEDS: METOCLOPRAMIDE HCL 10MG/2ML VIAL IV SCH ×3 (08:44→17:25)
[2022-02-18] MEDS: PANTOPRAZOLE SODIUM 40 MG/VIAL IV SCH (09:00)
[2022-02-18] MEDS ORDERED: POTASSIUM CHLORIDE 20MEQ TABLET SR PO NR (11:30)
[2022-02-18 12:00] VITALS: BP 136/68
[2022-02-18 16:00] VITALS: BP 136/76
[2022-02-18 20:00] VITALS: BP 118/63
[2022-02-19] VITALS: BP 164/95
[2022-02-19] MEDS: METOCLOPRAMIDE HCL 10MG/2ML VIAL IV SCH ×4 (00:19→18:32)
[2022-02-19] MEDS: ONDANSETRON HCL 4MG/2ML INJ IV PRN ×4 (01:39→21:09)
[2022-02-19] MEDS: DEXT 5%/0.45% NACL KCL 20MEQ/L 1,000 ML IV SCH ×3 (01:39→18:32)
[2022-02-19] MEDS: MORPHINE SULFATE 4 MG/ML CPJ (NOT FOR IM USE) IV PRN ×5 (01:40→21:10)
[2022-02-19 04:00] VITALS: BP 156/81
[2022-02-19 08:00] VITALS: BP 136/73
[2022-02-19] MEDS: PANTOPRAZOLE SODIUM 40 MG/VIAL IV SCH (08:53)
[2022-02-19 12:00] VITALS: BP 131/91
[2022-02-19 16:00] VITALS: BP 141/85
[2022-02-19 16:35] LABS: BASOPHILS % 0.4 % (0.0-2.0); HEMATOCRIT. 38.4 % (36.0-48.0); HEMOGLOBIN. 12.9 g/dL (12.0-16.0); MEAN CORPUSCULAR HEMOGLOBIN 28.3 pg (28.0-32.0); MEAN CORPUSCULAR VOLUME 84.1 fL (81.0-99.0); MEAN PLATELET VOLUME 7.9 fl (7.4-10.4); MONOCYTES % 9.2 % (2.0-8.0); NEUTROPHILS % 68.4 % (40.0-76.0); PLATELET 319 x1000/uL (130-400); RED BLOOD CELL COUNT 4.56 mill/uL (4.2-5.4); RED CELL DISTRIBUTION WIDTH 13.1 % (11.6-14.6)
[2022-02-19 16:59] LABS: CHLORIDE 101 mEq/L (98-107)
[2022-02-19 17:06] LABS: AMYLASE 62 IU/L (25-115)
[2022-02-19 20:00] VITALS: BP_SYST 103; BP_SYST 139; BP_DIAS 71; BP_DIAS 83
[2022-02-20] VITALS: BP 132/88
[2022-02-20] MEDS: METOCLOPRAMIDE HCL 10MG/2ML VIAL IV SCH ×4 (00:23→19:06)
[2022-02-20] MEDS: MORPHINE SULFATE 4 MG/ML CPJ (NOT FOR IM USE) IV PRN ×6 (00:56→23:19)
[2022-02-20] MEDS: DEXT 5%/0.45% NACL KCL 20MEQ/L 1,000 ML IV SCH ×3 (02:02→19:07)
[2022-02-20 04:00] VITALS: BP 158/86
[2022-02-20] MEDS: ONDANSETRON HCL 4MG/2ML INJ IV PRN ×3 (04:58→23:18)
[2022-02-20 07:23] LABS: CLARITY URINE CLEAR (CLEAR); COLOR URINE YELLOW (YELLOW); KETONES URINE NEGATIVE (NEGATIVE); LEUKOCYTE ESTERASE URINE NEGATIVE (NEGATIVE); NITRITE URINE NEGATIVE (NEGATIVE); OCCULT BLOOD URINE TRACE (NEGATIVE); PH URINE 7.5 (4.5-8.0); PROTEIN URINE NEGATIVE (NEGATIVE); SPECIFIC GRAVITY URINE 1.007 (1.005-1.030)
[2022-02-20 08:00] VITALS: BP 147/80
[2022-02-20] MEDS ORDERED: MAGNESIUM/ALUMINUM HYDROXIDE/SIMETHICONE 30ML UDC PO PRN (08:45)
[2022-02-20] MEDS: PANTOPRAZOLE SODIUM 40 MG/VIAL IV SCH (09:25)
[2022-02-20 12:00] VITALS: BP 150/99
[2022-02-20 16:00] VITALS: BP 138/92
[2022-02-20 20:00] VITALS: BP 132/72
[2022-02-21] VITALS: BP 130/70
[2022-02-21] MEDS: PROCHLORPERAZINE 10MG/2ML VIAL IV PRN ×3 (03:22→17:06)
[2022-02-21] MEDS: MORPHINE SULFATE 4 MG/ML CPJ (NOT FOR IM USE) IV PRN ×3 (03:26→17:07)
[2022-02-21 04:00] VITALS: BP 130/70
[2022-02-21 08:09] LABS: BASOPHILS % 0.5 % (0.0-2.0); HEMATOCRIT. 39.8 % (36.0-48.0); HEMOGLOBIN. 13.4 g/dL (12.0-16.0); LYMPHOCYTES % 29.7 % (20.0-50.0); MEAN CORPUSCULAR HEMOGLOBIN 28.1 pg (28.0-32.0); MEAN CORPUSCULAR VOLUME 83.6 fL (81.0-99.0); MEAN PLATELET VOLUME 7.7 fl (7.4-10.4); MONOCYTES % 8.9 % (2.0-8.0); NEUTROPHILS % 60.9 % (40.0-76.0); PLATELET 302 x1000/uL (130-400); RED BLOOD CELL COUNT 4.76 mill/uL (4.2-5.4); RED CELL DISTRIBUTION WIDTH 13.2 % (11.6-14.6)
[2022-02-21 08:13] LABS: CHLORIDE 102 mEq/L (98-107)
[2022-02-21] MEDS: PANTOPRAZOLE SODIUM 40 MG/VIAL IV SCH (08:40)
[2022-02-21] MEDS: SUCRALFATE 1 G/10 ML UDC PO SCH ×3 (08:40→21:06)
[2022-02-21] MEDS: DEXT 5%/0.45% NACL KCL 20MEQ/L 1,000 ML IV SCH ×2 (10:35→18:49)
[2022-02-21] MEDS: METOCLOPRAMIDE HCL 10MG/2ML VIAL IV SCH (18:00)
[2022-02-21 20:00] VITALS: BP 136/85
[2022-02-22] VITALS: BP 132/84
[2022-02-22] MEDS: PROCHLORPERAZINE 10MG/2ML VIAL IV PRN ×2 (00:06→06:39)
[2022-02-22] MEDS: METOCLOPRAMIDE HCL 10MG/2ML VIAL IV SCH ×4 (00:07→17:56)
[2022-02-22] MEDS: ACETAMINOPHEN 325MG TABLET PO PRN ×2 (00:09→06:40)
[2022-02-22] MEDS: DEXT 5%/0.45% NACL KCL 20MEQ/L 1,000 ML IV SCH ×3 (02:39→17:56)
[2022-02-22 04:00] VITALS: BP 138/78
[2022-02-22] MEDS: SUCRALFATE 1 G/10 ML UDC PO SCH ×3 (06:26→17:56)
[2022-02-22] MEDS ORDERED: MORPHINE SULFATE 2 MG/ML CPJ (NOT FOR IM USE) IV PRN (07:00)
[2022-02-22 07:03] LABS: BASOPHILS % 0.3 % (0.0-2.0); EOSINOPHILS % 0.1 % (0.0-5.0); HEMATOCRIT. 37.3 % (36.0-48.0); HEMOGLOBIN. 12.7 g/dL (12.0-16.0); LYMPHOCYTES % 23.8 % (20.0-50.0); MEAN CORPUSCULAR HEMOGLOBIN 28.2 pg (28.0-32.0); MEAN PLATELET VOLUME 7.9 fl (7.4-10.4); MONOCYTES % 9.6 % (2.0-8.0); NEUTROPHILS % 66.2 % (40.0-76.0); PLATELET 306 x1000/uL (130-400); RED CELL DISTRIBUTION WIDTH 12.8 % (11.6-14.6)
[2022-02-22 07:37] LABS: CHLORIDE 99 mEq/L (98-107)
[2022-02-22 08:00] VITALS: BP 120/69
[2022-02-22] MEDS: PANTOPRAZOLE SODIUM 40 MG/VIAL IV SCH (09:44)
[2022-02-22] MEDS ORDERED: POTASSIUM CHLORIDE 20MEQ TABLET SR PO NR (10:15)
[2022-02-22 12:00] VITALS: BP 146/62
[2022-02-22 16:00] VITALS: BP 124/73
[2022-02-22 17:10] VITALS: BP 124/73
== END 2022-02-22 20:16 | disposition home or self-care (01) | DRG 263 ==
LOC: ER 13:43 → EDBEDREQ 18:06 → 6EST 19:04 → EDBEDREQ 19:07 → EDBEDREQTM 19:07 → ENRESERV 19:32 → ER 20:48
PROVIDERS: ADMIT Internal Medicine; ATTEND Internal Medicine
PROC: 0FT44ZZ Resection of Gallbladder, Percutaneous Endoscopic Approach (ICD-10-PCS; principal; 2022-02-16)
DX: K85.10 Biliary acute pancreatitis without necrosis or infection (principal); K56.7 Ileus, unspecified; E87.6 Hypokalemia; Z20.822 Contact with and (suspected) exposure to COVID-19; K82.8 Other specified diseases of gallbladder; K21.9 Gastro-esophageal reflux disease without esophagitis; R12 Heartburn
CPT/HCPCS: 36415; 76700; 80053; 81003; 82150; 85025; 85027; 87426; 88304; 99285; C1893; C9113; J0780; J1100; J1170; J1885; J2250; J2270; J2405; J2704; J2710; J2765; J3010; J3490; J7030

== ENCOUNTER 2022-02-24 12:57 | Emergency (ER) | payer MEDICAID, OTHER ==
[~2022-02-24] VITALS: Ht 160 cm; Wt 70.0 kg
[2022-02-24] MEDS ORDERED: MAGNESIUM/ALUMINUM HYDROXIDE/SIMETHICONE 30ML UDC PO ONE (13:15)
[2022-02-24] MEDS ORDERED: VISCOUS LIDOCAINE 2% 15 ML UDC MM ONE (13:15)
[2022-02-24] MEDS ORDERED: ONDANSETRON HCL 4MG/2ML INJ IV NR (13:30)
[2022-02-24] MEDS ORDERED: SODIUM CHLORIDE 0.9% 1,000 ML IV ONE (13:30)
[2022-02-24 13:41] LABS: BASOPHILS % 0.4 % (0.0-2.0); EOSINOPHILS % 0.2 % (0.0-5.0); HEMATOCRIT. 37.8 % (36.0-48.0); HEMOGLOBIN. 12.5 g/dL (12.0-16.0); LYMPHOCYTES % 15.8 % (20.0-50.0); MEAN CORPUSCULAR HEMOGLOBIN 27.9 pg (28.0-32.0); MEAN CORPUSCULAR VOLUME 84.3 fL (81.0-99.0); MEAN PLATELET VOLUME 7.7 fl (7.4-10.4); MONOCYTES % 5.8 % (2.0-8.0); NEUTROPHILS % 77.8 % (40.0-76.0); PLATELET 296 x1000/uL (130-400); RED BLOOD CELL COUNT 4.48 mill/uL (4.2-5.4); RED CELL DISTRIBUTION WIDTH 13.2 % (11.6-14.6)
[2022-02-24 14:14] VITALS: BP 147/119
[2022-02-24] MEDS ORDERED: HYDROCODONE/ACETAMINOPHEN 5/325MG TABLET PO ONE (14:30)
[2022-02-24 14:37] LABS: CHLORIDE 108 mEq/L (98-107)
[2022-02-24] MEDS ORDERED: MAG-55 MT (14:57)
[2022-02-24] MEDS ORDERED: ONDA4TAB50 MT (14:57)
[2022-02-24 15:08] LABS: AMYLASE 115 IU/L (25-115)
== END 2022-02-24 15:25 | disposition home or self-care (01) ==
LOC: ER 12:57
DX: G89.18 Other acute postprocedural pain (principal); R10.13 Epigastric pain; Z87.19 Personal history of other diseases of the digestive system; K29.70 Gastritis, unspecified, without bleeding
CPT/HCPCS: 36415; 80053; 82150; 83690; 85025; 96361; 96374; 99283; J2405

== ENCOUNTER 2022-10-24 10:33 | Emergency (ER) | payer MEDICAID ==
[~2022-10-24] VITALS: Ht 165.1 cm; Wt 58.5 kg
[~2022-10-24 10:33] MED LIST changes: +MAG-55 MT; +ONDA4TAB50 MT
[2022-10-24 10:38] VITALS: O2SAT 99
[2022-10-24] MEDS ORDERED: LIDOCAINE 5% PATCH TOP SCH (11:30)
[2022-10-24] MEDS ORDERED: CYCLOBENZAPRINE 10MG TABLET PO ONE (11:30)
[2022-10-24] MEDS ORDERED: KETOROLAC 30MG/ML VIAL IM ONE (11:30)
[2022-10-24 14:38] LABS: CLARITY URINE CLEAR (CLEAR); COLOR URINE YELLOW (YELLOW); GLUCOSE URINE NEGATIVE (NEGATIVE); KETONES URINE 3+ (NEGATIVE); LEUKOCYTE ESTERASE URINE NEGATIVE (NEGATIVE); NITRITE URINE NEGATIVE (NEGATIVE); OCCULT BLOOD URINE NEGATIVE (NEGATIVE); PROTEIN URINE TRACE (NEGATIVE); SPECIFIC GRAVITY URINE 1.033 (1.005-1.030)
[2022-10-24 15:09] LABS: MUCUS URINE 1+ /lpf (< = 2+)
[2022-10-24 15:11] LABS: SQUAMOUS EPITHELIAL CELL URINE NONE SEEN /lpf (RARE/1+)
[2022-10-24 15:12] LABS: BACTERIA URINE 1+
[2022-10-24 15:13] LABS: WBC URINE 0-2 /hpf (0-2)
[2022-10-24 15:17] LABS: RBC URINE NONE SEEN /hpf (0-2)
[2022-10-24 15:24] LABS: BASOPHILS % 0.6 % (0.0-2.0); EOSINOPHILS % 0.1 % (0.0-5.0); HEMATOCRIT. 36.8 % (36.0-48.0); HEMOGLOBIN. 11.9 g/dL (12.0-16.0); LYMPHOCYTES % 26.3 % (20.0-50.0); MEAN CORPUSCULAR HEMOGLOBIN 27.7 pg (28.0-32.0); MEAN CORPUSCULAR HGB CONC 32.3 g/dL (31.0-37.0); MEAN CORPUSCULAR VOLUME 85.8 fL (81.0-99.0); MEAN PLATELET VOLUME 7.7 fl (7.4-10.4); MONOCYTES % 4.1 % (2.0-8.0); NEUTROPHILS % 68.9 % (40.0-76.0); PLATELET 300 x1000/uL (130-400); RED BLOOD CELL COUNT 4.28 mill/uL (4.2-5.4); RED CELL DISTRIBUTION WIDTH 13.2 % (11.6-14.6); WHITE BLOOD COUNT 6.3 x1000/uL (4.5-11.0)
[2022-10-24 15:46] LABS: CHLORIDE 107 mEq/L (98-107); INDEX HEMOLYSI 1 (1-3); INDEX ICTERIC 1 (1-4); INDEX LIPEMIC 1 (1-3); POTASSIUM 3.7 mEq/L (3.5-5.1); SODIUM 140 mEq/L (136-145)
[2022-10-24 15:54] LABS: ALANINE AMINOTRANSFERASE 26 IU/L (13-61); ASPARTATE AMINOTRANSFERASE 18 IU/L (15-37); BILIRUBIN TOTAL 0.3 mg/dL (0.1-1.0); CALCIUM 9.1 mg/dL (8.5-10.1); CARBON DIOXIDE 25 mEq/L (21-32); CREATININE 0.6 mg/dL (0.6-1.3); GLUCOSE 105 mg/dL (70-105); PROTEIN TOTAL 7.9 g/dL (6.0-8.3); UREA NITROGEN BLOOD 12 mg/dL (7-21)
[2022-10-24] MEDS ORDERED: HALOPERIDOL LACTATE 5MG/ML VIAL IM ONE (16:15)
[2022-10-24] MEDS ORDERED: LIDO700A15 TP (16:36)
[2022-10-24] MEDS ORDERED: TOPUD MT (16:36)
[2022-10-24] MEDS ORDERED: NAPR-679 MT ×2 (16:36)
[2022-10-24] MEDS ORDERED: FAMO40TA70 MT (16:58)
[2022-10-24] MEDS ORDERED: MAGNESIUM/ALUMINUM HYDROXIDE/SIMETHICONE 30ML UDC PO ONE (17:00)
[2022-10-24] MEDS ORDERED: FAMOTIDINE 20MG TABLET PO SCH (17:00)
[2022-10-24 17:29] VITALS: BP 133/86; PULSE 98; RESP 16; TEMP 98.1
== END 2022-10-24 17:31 | disposition home or self-care (01) ==
LOC: ER 10:41
DX: M51.27 Other intervertebral disc displacement, lumbosacral region (principal); M47.817 Spondylosis without myelopathy or radiculopathy, lumbosacral region; R10.13 Epigastric pain; K80.20 Calculus of gallbladder without cholecystitis without obstruction; K21.9 Gastro-esophageal reflux disease without esophagitis; F12.90 Cannabis use, unspecified, uncomplicated; Z90.49 Acquired absence of other specified parts of digestive tract; Z98.890 Other specified postprocedural states
CPT/HCPCS: 80053; 81003; 83690; 85025; 36415; 74176; 96372; 99285; J1630; J1885; Z7610